=== PATIENT | female | born 1990 | race Caucasian/White ===

== ENCOUNTER → 2020-07-15 15:18 | Outpatient (BNVA) | payer OTHER, SELFPAY | PROVIDERS: PCP Physician Assistant; Visit Provider Internal Medicine Pulmonary Disease ==

== ENCOUNTER 2021-01-20 15:32 | Outpatient (REF) | payer OTHER, SELFPAY ==
[2021-01-20 16:42] LABS: MANUAL DIFF FLAG NO
[2021-01-20 16:48] LABS: Basophils Absolute Auto 0.1 X10*3/uL (0.0-0.2); Basophils Percent Auto 0.8 % (0-2); Eosinophils Absolute Auto 0.2 X10*3/uL (0.0-0.4); Eosinophils Percent Auto 3.7 % (0-4); Hematocrit 43.7 % (37-47); Hemoglobin 14.9 g/dl (12.0-16.0); Imm Gran Abs Auto 0.01 X10*3/uL (0.00-0.03); Imm Gran Pct Auto 0.2 % (0.0-0.4); Lymphocytes Absolute Auto 2.3 X10*3/uL (1.2-4.9); Lymphocytes Percent Auto 36.5 % (20-40); Mean Corpuscular HGB Conc 34.1 g/dl (31.0-35.0); Mean Corpuscular Hemoglobin 30.3 pg (27.0-33.0); Mean Platelet Volume 9.2 fL (9.4-12.3); Monocytes Absolute Auto 0.6 X10*3/uL (0.1-1.2); Monocytes Percent Auto 9.5 % (2-11); Neutrophils Absolute Auto 3.2 X10*3/uL (2.0-8.3); Neutrophils Percent Auto 49.3 % (45-73); Platelet Count 340 X10*3/uL (160-400); Red Blood Count 4.91 X10*6/uL (4.20-5.50); Red Cell Distribution Width 12.2 % (11.0-16.0); White Blood Count 6.4 X10*3/uL (4.8-10.8)
== END 2021-01-20 15:33 | disposition home or self-care (01) ==
LOC: HO.LAB 15:32
PROVIDERS: PCP Physician Assistant; Visit Provider Internal Medicine Pulmonary Disease
DX: J45.909 Unspecified asthma, uncomplicated (principal); Z91.09 Other allergy status, other than to drugs and biological substances
CPT/HCPCS: 36415; 82785; 85025; 86003

== ENCOUNTER 2021-02-22 09:29 | Outpatient (REF) | payer OTHER, SELFPAY | END 2021-02-22 09:30 | disposition home or self-care (01) | LOC: HO.MDS 09:29 | PROVIDERS: PCP Physician Assistant; Visit Provider Internal Medicine Pulmonary Disease | DX: J45.50 Severe persistent asthma, uncomplicated (principal) | CPT/HCPCS: 96372; J2357 ==

== ENCOUNTER 2021-03-22 15:02 | Outpatient (REF) | payer OTHER, SELFPAY | END 2021-03-22 15:03 | disposition home or self-care (01) | LOC: HO.MDS 15:02 | PROVIDERS: PCP Physician Assistant; Visit Provider Internal Medicine Pulmonary Disease | DX: J45.50 Severe persistent asthma, uncomplicated (principal) | CPT/HCPCS: 96372; J2357 ==

== ENCOUNTER 2021-04-21 08:53 | Outpatient (REF) | payer OTHER, SELFPAY | END 2021-04-21 08:54 | disposition home or self-care (01) | LOC: HO.MDS 08:53 | PROVIDERS: PCP Physician Assistant; Visit Provider Internal Medicine Pulmonary Disease | DX: J45.50 Severe persistent asthma, uncomplicated (principal) | CPT/HCPCS: 96372; J2357 ==

== ENCOUNTER 2021-05-26 13:30 | Outpatient (REF) | payer OTHER, SELFPAY | END 2021-05-26 13:31 | disposition home or self-care (01) | LOC: HO.MDS 13:30 | PROVIDERS: PCP Physician Assistant; Visit Provider Internal Medicine Pulmonary Disease | DX: J45.50 Severe persistent asthma, uncomplicated (principal) | CPT/HCPCS: 96372; J2357 ==

== ENCOUNTER 2021-06-23 13:26 | Outpatient (REF) | payer OTHER, SELFPAY | END 2021-06-23 13:27 | disposition home or self-care (01) | LOC: HO.MDS 13:26 | PROVIDERS: PCP Physician Assistant; Visit Provider Internal Medicine Pulmonary Disease | DX: J45.50 Severe persistent asthma, uncomplicated (principal) | CPT/HCPCS: 96372; J2357 ==

== ENCOUNTER → 2021-09-15 12:56 | Outpatient (BNVA) | payer OTHER, SELFPAY | PROVIDERS: PCP Physician Assistant; Visit Provider Internal Medicine Pulmonary Disease | DX: J45.909 Unspecified asthma, uncomplicated (principal) ==

== ENCOUNTER 2023-04-20 09:35 | Outpatient (AMB) | payer OTHER, SELFPAY ==
--- NOTE | 2023-04-20 09:37 | A.OFFVIS_ITS ---
Intake Vital Signs 04/20/23 09:38 Height 4 ft 11 in Weight 188 lb 7.924 oz BMI 38.1 BP 111/64 Blood Pressure Location Rt brachial Position Sitting Pulse 75 Pulse Source Doppler Pulse Oximetry (%) 100 Oxygen Delivery Method Room Air Intake Visit Reasons: Asthma Allergies oxycodone Allergy (Unknown, Verified 04/20/23 09:39) Unknown prednisone Allergy (Unknown, Verified 04/20/23 09:39) Unknown HPI Asthma HPI Details 32-year-old lady, lifetime nonsmoker, fo llowed for moderate persistent asthma exacerbated by exercise and environmental allergies.? She continues to use Breo 100 and albuterol MDI with good control of her underlying symptoms.? She tried to use Xolair for 6 months, however she did not derive significant benefit and has stopped using it. She denies any recent exacerbations. No significant changes since prior visit. Review of Systems Const Denies daytime sleepiness, Denies excessive sweating, Denies fatigue, Denies fever(s), Denies lethargy, Denies malaise, Denies night sweats, Denies snoring and Denies weight loss Eyes Denies blurry vision and Denies itchy eyes ENT Denies nasal congestion, Denies post nasal drip, Denies sinus pain, Denies sinus pressure and Denies other ( Thrush) Card Denies chest pain, Denies pedal edema, Denies dyspnea, Denies orthopnea and Denies paroxysmal nocturnal dyspnea Resp Denies cough, Denies hemoptysis, Denies excessive phlegm production, Denies dyspnea, Denies snoring and Denies wheezing GI Denies abdominal pain and Denies heartburn Musc Denies myalgias, Denies arthralgias and Denies joint swelling Skin/Breast Denies rash Neuro Denies memory loss and Denies seizure-like activity Psych Denies abnormal sleep pattern, Denies anxiety and Denies memory loss Endo Denies excessive sweating, Denies fatigue and Denies heat intolerance Helio/Lymph Denies easy bruising Aller/Immun Denies itchy eyes, Denies seasonal rhinorrhea and Denies wheezing Physical Exam Vital Signs: Last Vital Signs Pulse 75 04/20/23 09:38 BP 111/64 04/20/23 09:38 Pulse Ox 100 04/20/23 09:38 Oxygen Delivery Method Room Air 04/20/23 09:38 BMI result Body Mass Index 38.1 Const General: no acute distress and alert Nutritional Appearance: not obese Orientation/consciousness: Other orientation findings ( oriented) HEENT Head: Yes atraumatic Eyes General: appearance normal, both eyes and all related structures Sclerae: sclerae normal EOM: EOMs intact bilaterally Neck Neck: Yes supple Lymphatic: no lymphadenopathy noted Resp Effort & Inspection: normal respiratory effort and no use of accessory muscles Auscultation: clear to auscultation bilaterally Cardio Rate: regular rate Rhythm: regular rhythm Heart sounds: no gallops, no murmurs and no rubs Skin General skin exam: other ( warm) Extrem General: No clubbing, No cyanosis and No edema Assessment & Plan Assessment & Plan (1) Asthma: Code(s): J45.909 - Unspecified asthma, uncomplicated Plan: Well controlled on current regimen of Breo 100 and albuterol MDI. Continue current regimen. Medications: Changed From albuterol sulfate 90 mcg/actuation 2 puffs inhalation Q2H PRN To albuterol sulfate 90 mcg/actuation 2 puffs inhalation Q2H PRN 1 ea 6RF shortness of breath or wheezing 30 days Coding Level of Care Code Est Pt Level 3 (70696) Diagnoses Asthma J45.909
[2023-04-20 09:38] VITALS: BP 111/64; PULSE 75; O2SAT 100; BMI 38.1
== END 2023-04-20 10:01 | disposition home or self-care (01) ==
PROVIDERS: PCP Physician Assistant; Visit Provider Internal Medicine Pulmonary Disease
DX: J45.909 Unspecified asthma, uncomplicated (principal)
CPT/HCPCS: 99213

== ENCOUNTER → 2023-04-20 09:35 | Outpatient (BNVA) | payer OTHER, SELFPAY | PROVIDERS: PCP Physician Assistant; Visit Provider Internal Medicine Pulmonary Disease ==

== ENCOUNTER 2024-04-15 08:48 | Outpatient (AMB) | payer OTHER, SELFPAY ==
[2024-04-15 08:58] VITALS: BP 102/64; PULSE 74; O2SAT 98; BMI 30.9
--- NOTE | 2024-04-15 08:58 | MHC.OFFVIS ---
Vital Signs 04/15/24 08:58 Height 4 ft 11 in Weight 153 lb 3.54 oz BMI 30.9 BP 102/64 Blood Pressure Location Rt brachial Position Sitting Pulse 74 Pulse Source Doppler Pulse Oximetry (%) 98 Oxygen Delivery Method Room Air Intake Visit Reasons: Annual follow up/prescription refill Allergies oxycodone Allergy (Unknown, Verified 04/15/24 09:03) Unknown prednisone Allergy (Unknown, Verified 04/15/24 09:03) Unknown HPI HPI Annual follow up/prescription refill: Details: 33-year-old lady, lifetime nonsmoker, followed for moderate persistent asthma exacerbated by exercise and environmental allergies.? She continues to use Breo 100 and albuterol MDI with good control of her underlying symptoms.? She tried to use Xolair for 6 months, however she did not derive significant benefit and has stopped using it. She denies any recent exacerbations. Review of Systems Const Denies daytime sleepiness, Denies excessive sweating, Denies fatigue, Denies fever(s), Denies lethargy, Denies malaise, Denies night sweats, Denies snoring and Denies weight loss Eyes Denies blurry vision and Denies itchy eyes ENT Denies nasal congestion, Denies post nasal drip, Denies sinus pain, Denies sinus pressure and Denies other ( Thrush) Card Denies chest pain, Denies pedal edema, Denies dyspnea, Denies orthopnea and Denies paroxysmal nocturnal dyspnea Resp Denies cough, Denies hemoptysis, Denies excessive phlegm production, Denies dyspnea, Denies snoring and Denies wheezing GI Denies abdominal pain and Denies heartburn Musc Denies myalgias, Denies arthralgias and Denies joint swelling Skin/Breast Denies rash Neuro Denies memory loss and Denies seizure-like activity Psych Denies abnormal sleep pattern, Denies anxiety and Denies memory loss Endo Denies excessive sweating, Denies fatigue and Denies heat intolerance Helio/Lymph Denies easy bruising Aller/Immun Denies itchy eyes, Denies seasonal rhinorrhea and Denies wheezing Physical Exam Vital Signs: Last Vital Signs Pulse 74 04/15/24 08:58 BP 102/64 04/15/24 08:58 Pulse Ox 98 04/15/24 08:58 Oxygen Delivery Method Room Air 04/15/24 08:58 BMI result Body Mass Index 30.9 Const General: no acute distress and alert Nutritional Appearance: not obese Orientation/consciousness: Other orientation findings ( oriented) HEENT Head: Yes atraumatic Eyes General: appearance normal, both eyes and all related structures Sclerae: sclerae normal EOM: EOMs intact bilaterally Neck Neck: Yes supple Lymphatic: no lymphadenopathy noted Resp Effort & Inspection: normal respiratory effort and no use of accessory muscles Auscultation: clear to auscultation bilaterally Cardio Rate: regular rate Rhythm: regular rhythm Heart sounds: no gallops, no murmurs and no rubs Skin General skin exam: other ( warm) Extrem General: No clubbing, No cyanosis and No edema Assessment & Plan Assessment & Plan (1) Asthma: Code(s): J45.909 - Unspecified asthma, uncomplicated Category: Medical Plan: Well controlled on current regimen of Breo and albuterol MDI. Continue current regimen. Medications: Refilled Breo Ellipta 100-25 mcg/dose (fluticasone furoate-vilanterol) 1 ea PO DAILY 180 ea 3RF NS Z91.09 - Other allergy status, other than to drugs and biological substances albuterol sulfate 90 mcg/actuation 2 puffs inhalation Q2H PRN 1 ea 6RF shortness of breath or wheezing 30 days Coding Level of Care Code Est Pt Level 3 (34788) Diagnoses Asthma J45.909
== END 2024-04-15 09:13 | disposition home or self-care (01) ==
PROVIDERS: PCP Physician Assistant; Visit Provider Internal Medicine Pulmonary Disease
DX: J45.909 Unspecified asthma, uncomplicated (principal)
CPT/HCPCS: 99213